=== PATIENT | male | born 1960 | race Caucasian/White ===

== ENCOUNTER 2018-12-06 12:33 | Inpatient (IN) | payer OTHER ==
[2018-12-06] MEDS ORDERED: BUPIVACAINE 0.25% PF 10 ML VIAL ONE (13:13)
[2018-12-06] MEDS ORDERED: LIDOCAINE 1% MPF 30 ML VIAL ONE (13:13)
[2018-12-06] MEDS ORDERED: FENTANYL CITR 100 MCG/2 ML ONE ×2 (13:29→14:28)
[2018-12-06] MEDS ORDERED: PROPOFOL 200 MG/20 ML VIAL IV ONE (13:29)
[2018-12-06] MEDS ORDERED: LIDOCAINE 2% MPF 5 ML VIAL ONE (13:32)
[2018-12-06] MEDS ORDERED: ROCURONIUM 50 MG/5 ML VIAL IV ONE (13:34)
[2018-12-06] MEDS ORDERED: MIDAZOLAM HCL 2 MG/2 ML INJ ONE (13:39)
[2018-12-06] MEDS ORDERED: Ringers Lactate 1,000 ML IV ONE (13:50)
[2018-12-06] MEDS ORDERED: CEFAZOLIN/SWI 1gm 1 GM/10 ML SYR ONE (13:51)
[2018-12-06] MEDS ORDERED: D5LR 1,000 ML IV SCH (14:00)
[2018-12-06] MEDS: VANCOMYCIN 1.75 GM in NA CHLORIDE 0.9% 500 ML IVPB SCH (14:11)
[2018-12-06] MEDS ORDERED: BACITRACIN 50000 UNIT VIAL ONE (14:15)
[2018-12-06] MEDS ORDERED: NS 0.9% VIAL 10 ML ONE (14:16)
[2018-12-06] MEDS ORDERED: MEPERIDINE HCL 50 MG/ML AMP ONE ×2 (15:20→15:48)
[2018-12-06 15:52] LABS: Absolute Lymphocytes (CBC) 1.6 K/uL (0.7-4.9); Basophils % 0.6 % (0-1.3); Eosinophils % 0.2 % (0-4.4); Hematocrit 48.4 % (39.6-49.0); Lymphocytes % 8.8 % (15.3-44.8); MPV 8.8 fL (7.6-11.3); Monocytes % 7.4 % (3.3-12.3); RBC Red Blood Cell Count 5.71 M/uL (4.33-5.43)
[2018-12-06 15:55] LABS: Protime INR 1.24
--- NOTE | 2018-12-06 16:00 | EKG ---
Test Date: 2018-12-06 Test Time: 13:17:49 Support Technician: DEMETRIA MEASUREMENT RESULTS: Intervals: Rate: 98 KS: 146 QRSD: 96 QT: 330 QTc: 421 [place]: P: 44 KS: 146 QRS: 36 T: 41 INTERPRETIVE STATEMENTS: Normal sinus rhythm Normal ECG Compared to ECG 09/04/1999 12:05:00 No significant changes Electronically Signed On 12-06-18 15:59:43 CDT by Brody Landa
[2018-12-06 16:13] LABS: Albumin 3.1 g/dL (3.4-5.0); Bilirubin Total 0.7 mg/dL (0.2-1.0); Potassium 3.9 mmol/L (3.5-5.1); Protein, Total 6.8 g/dL (6.4-8.2)
[2018-12-06] MEDS: INSULIN -REGULAR HUMAN 50 UNIT/0.5 ML ML SQ SCH ×2 (16:30→21:00)
[2018-12-06] MEDS: NA CHLORIDE 0.9% 1,000 ML IV SCH (17:26)
[2018-12-06] MEDS ORDERED: CEFEPIME 2 GM VIAL IV SCH (21:00)
[2018-12-06] MEDS: CEFEPIME/SWI 2gm 2 GM/20 ML SYR IV SCH (21:13)
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
[2018-12-07] MEDS: MORPHINE 4 MG/ML SYR IV PRN ×2 (00:26→09:15)
[2018-12-07] MEDS: VANCOMYCIN 1.75 GM in NA CHLORIDE 0.9% 500 ML IVPB SCH ×2 (02:24→14:49)
[2018-12-07] MEDS: NA CHLORIDE 0.9% 1,000 ML IV SCH ×3 (02:26→12:20)
[2018-12-07 05:54] LABS: Absolute Lymphocytes (CBC) 1.7 K/uL (0.7-4.9); Basophils % 0.2 % (0-1.3); Eosinophils % 0.6 % (0-4.4); Hematocrit 44.7 % (39.6-49.0); Lymphocytes % 13.3 % (15.3-44.8); MPV 8.3 fL (7.6-11.3); Monocytes % 7.9 % (3.3-12.3); RBC Red Blood Cell Count 5.32 M/uL (4.33-5.43)
[2018-12-07] MEDS ORDERED: ACETAMINOPHEN 500 MG TAB PO PRN (05:54)
[2018-12-07 06:09] LABS: Albumin 2.6 g/dL (3.4-5.0); Bilirubin Total 0.5 mg/dL (0.2-1.0); Magnesium 2.2 mg/dL (1.8-2.4); Protein, Total 6.3 g/dL (6.4-8.2)
[2018-12-07] MEDS: INSULIN -REGULAR HUMAN 50 UNIT/0.5 ML ML SQ SCH ×4 (07:30→21:00)
[2018-12-07] MEDS: CEFEPIME/SWI 2gm 2 GM/20 ML SYR IV SCH ×2 (07:52→21:44)
[2018-12-07] MEDS: ONDANSETRON 4 MG/2 ML VIAL IV PRN (09:22)
[2018-12-07] MEDS: RANITIDINE 150 MG TABLET PO SCH ×2 (10:29→21:44)
[2018-12-07] MEDS: ACETAMINOPHEN 500 MG TAB PO PRN (12:19)
[2018-12-07] MEDS ORDERED: SODIUM CHLORIDE 0.9% 10ML INJ IV PRN (12:54)
[2018-12-07] MEDS ORDERED: PANTOPRAZOLE 40 MG INJ IVP ONE (12:56)
--- NOTE | 2018-12-07 13:16 | PN ---
Date of Progress Note: 12/07/2018 Subjective: The patient seen and examined. Chart reviewed and case discussed with RN. The patient states his pain is better. Medications: List reviewed. Physical Examination: Vital Signs: Temperature 97.6, heart rate 66, blood pressure 140/88, respirations 17, and O2 of 96% on 2 L via nasal cannula. General: Awake, alert, oriented x3. Some mild distress due to nausea. Obese male. CV: S1 and S2. Regular rate and rhythm. Peripheral pulses present. Respiratory: Moving air well bilaterally. No wheezing. Gastrointestinal: Abdomen is soft, nontender, nondistended. Positive bowel sounds. Extremities: No clubbing, cyanosis, or edema. Neurologic: Nonfocal. : Right scrotum incision site clean, dry, intact. Packing in place with some drainage. Laboratory Data: Sodium 143, potassium 4, chloride 108, CO2 30, BUN 16, creatinine 0.93, glucose 97, calcium 7.8, magnesium 2.2, albumin 2.6. WBC 13, H and H 14.6 and 44.7, platelets 237, neutrophils 78%. Cultures pending. Wound cultures growing out 3+ beta-hemolytic Strep group B. Assessment And Plan: A 58-year-old male with: 1. Right scrotal abscess and cellulitis with necrosis, status post incision and drainage. Pain is improving. Continue IV antibiotics. Wound cultures growing group B Strep, may be contaminant. Blood cultures are pending. Appreciate Dr. Arvizu's input. WBC count is trending down. The patient is afebrile. 2. Moderate protein-calorie malnutrition. We continue with supplements. 3. Low testosterone. The patient is on supplements. 4. Obesity, BMI 36. 5. Deep venous thrombosis prophylaxis. We will start Lovenox. Plan: Continue with IV antibiotics. Follow up on cultures. Likely discharge in the next 24-48 hours depending on clinical response. We will need to have wound care set up. ADDENDUM: Patient reports GERD symptoms. Takes Zantac at home. Did not help. Will give IV protonix x1. Pt has never had EGD done previously. Recommend outpt GI f/up. SA/MODL Voice ID: [id number] Report ID: [id number] [facility]
--- NOTE | 2018-12-07 18:47 | PN ---
Subjective: The patient is doing well. Feels better. Objective: Vital Signs: 97.6, 66, 17, 140/88, 96% sat on nasal cannula 1 L/minute. Laboratory Data: The patient's white count has decreased from 18,300 to 13,000. Coags are negative. Chemistry shows glucose better at 127, was 142 on admission. Hemoglobin A1c pending. Assessment: Status post scrotal incision and drainage, resection of necrotic skin, and semi-closure with [place] drain placement. Examined the wound today. It is beefy red granulation wound. If the wound looks pretty good tomorrow, may consider closing it primary and leaving the draining until next week. We will await for the final culture results to come back and continue to monitor patient. We will make him n.p.o. post midnight. Hold Lovenox dose tomorrow morning. CHAPITO/ODIN Voice ID: [id number] Report ID: [id number]
[2018-12-08] MEDS: D5LR 1,000 ML IV SCH ×2 (01:05→15:11)
[2018-12-08] MEDS: NA CHLORIDE 0.9% 1,000 ML IV SCH (01:13)
[2018-12-08] MEDS: VANCOMYCIN 1.75 GM in NA CHLORIDE 0.9% 500 ML IVPB SCH ×2 (02:19→13:33)
[2018-12-08 05:36] LABS: Absolute Lymphocytes (CBC) 1.7 K/uL (0.7-4.9); Basophils % 0.4 % (0-1.3); Eosinophils % 1.8 % (0-4.4); Hematocrit 46.7 % (39.6-49.0); Lymphocytes % 17.4 % (15.3-44.8); MPV 8.4 fL (7.6-11.3); Monocytes % 8.6 % (3.3-12.3); RBC Red Blood Cell Count 5.51 M/uL (4.33-5.43)
[2018-12-08 05:53] LABS: Albumin 2.6 g/dL (3.4-5.0); Bilirubin Total 0.4 mg/dL (0.2-1.0); Potassium 4.1 mmol/L (3.5-5.1); Protein, Total 6.3 g/dL (6.4-8.2)
[2018-12-08] MEDS: INSULIN -REGULAR HUMAN 50 UNIT/0.5 ML ML SQ SCH ×3 (07:30→15:44)
[2018-12-08] MEDS: RANITIDINE 150 MG TABLET PO SCH (09:00)
[2018-12-08] MEDS: CEFEPIME/SWI 2gm 2 GM/20 ML SYR IV SCH (09:11)
[2018-12-08] MEDS ORDERED: HYDROCODONE/APAP 7.5/325 MG TAB PO PRN (09:37)
[2018-12-08] MEDS: MORPHINE 4 MG/ML SYR IV PRN (10:33)
[2018-12-08] MEDS: ONDANSETRON 4 MG/2 ML VIAL IV PRN (10:33)
[2018-12-08] MEDS ORDERED: LIDOCAINE 1% MPF 30 ML VIAL ONE (11:17)
[2018-12-08] MEDS ORDERED: BUPIVACAINE 0.5% PF 10 ML VIAL ONE (11:17)
[2018-12-08] MEDS ORDERED: PROPOFOL 200 MG/20 ML VIAL IV ONE (11:21)
[2018-12-08] MEDS ORDERED: FENTANYL CITR 100 MCG/2 ML ONE (11:21)
[2018-12-08] MEDS ORDERED: MIDAZOLAM HCL 2 MG/2 ML INJ ONE (11:21)
[2018-12-08] MEDS ORDERED: BACITRACIN 50000 UNIT VIAL ONE (11:21)
[2018-12-08] MEDS ORDERED: LIDOCAINE 2% MPF 5 ML VIAL ONE (11:21)
[2018-12-08] MEDS ORDERED: KETOROLAC 30 MG/ML INJ ONE ×3 (12:12→12:38)
[2018-12-08] MEDS: HYDROMORPHONE HCL 1 MG/ML INJ ONE ×6 (12:26→12:57)
[2018-12-08] MEDS: ACETAMINOPHEN 500 MG TAB PO PRN (15:18)
--- NOTE | 2018-12-09 04:24 | DS ---
Date of Discharge: 12/08/2018 Consultants: Dr. Arvizu with Urology. Procedures: On 12/07/2018, incision and drainage of right scrotum abscess, debridement of necrotic s crotal tissue. Procedures on 12/08/2018, scrotal closure. Admitting Diagnoses: 1.Scrotal abscess and necrosis with cellulitis on the right side. 2.Leukocytosis with neutrophilia. 3.Obesity, BMI 36. 4.Low testosterone levels, on supplemental testosterone. Discharge Diagnoses: 1.Right scrotal cellulitis, necrosis, and abscess, status post I and D and drainage placement. 2.Streptococcus infection of the scrotum. 3.Low testosterone levels, on supplements. 4.Obesity, BMI 36. 5.New-onset diabetes mellitus, type 2 with hyperglycemia, [id number]. Hospital Course: The patient is a 58-year-old male, who was admitted directly to the hospital by Dr. Arvizu for scrotal swelling, necrosis, and cellulitis on the right side. The patient went for debrid ement and tolerated the procedure well. He was started on broad-spectrum IV antibiotics. Initially, the patient had an elevated white blood cell count of 18,000 with elevated neutrophils. The patient responded well to IV antibiotics. His white blood cell count normalized. His cultures grew out Str eptococcus agalactiae, which were sensitive to penicillin. The patient's blood cultures remained neg ative to date. The patient was then taken back for closure of the scrotum and [place] drain was to r emain in place until a week after when the patient will follow up with Dr. Arvizu for removal. The pa tient's pain improved. He was no longer in distress. He was afebrile. There were no signs of sepsi s. The patient was then cleared for discharge after scrotal closure. He will be sent home in a stab condition. Activity: As tolerated. Medications: As per medication reconciliation list. Followup: Follow up with PCP in 2-3 days. Follow up with urologist, Dr. Arvizu, in 1 week for remova l of [place] drain. Return to ER for worsening condition. Activity: No driving or operating heavy machinery while on narcotics. Medications: As per medication reconciliation list. Physical Examination: General: Awake, alert, oriented, no acute distress. Obese male. CV: S1, S2. No murmurs. Respiratory: Moving air well bilaterally. Abdomen: Soft, nontender, nondistended. Positive bowel sounds. Extremities: No clubbing, cyanosis, edema. Neuro: Nonfocal. Skin: Right scrotum [place] drain in place. Incision site clean, dry, intact. Total time spent discharging the patient was 38 minutes. The patient was counseled regarding his new -onset diabetes. He needs to have diabetic education set up as well as diet and exercise changes. I f he is unable to improve his hemoglobin A1c, he will need to be started on metformin. SA/MODL Voice ID: [id number] Report ID: [id number]
== END 2018-12-08 20:25 | disposition home health service (06) | DRG 728 ==
LOC: 2ND 12:33 → 4TH 12-07 17:26
PROVIDERS: ADMIT Family Medicine; ATTEND Family Medicine
PROC: 0HD9XZZ Extraction of Perineum Skin, External Approach (ICD-10-PCS; 2018-12-06)
PROC: 0V9500Z Drainage of Scrotum with Drainage Device, Open Approach (ICD-10-PCS; principal; 2018-12-06 13:00)
PROC: 0HQ9XZZ Repair Perineum Skin, External Approach (ICD-10-PCS; 2018-12-08)
DX: N49.2 Inflammatory disorders of scrotum (principal); E44.0 Moderate protein-calorie malnutrition; E66.9 Obesity, unspecified; K21.9 Gastro-esophageal reflux disease without esophagitis; B95.4 Other streptococcus as the cause of diseases classified elsewhere; E11.65 Type 2 diabetes mellitus with hyperglycemia; E29.1 Testicular hypofunction; Z68.36 Body mass index [BMI] 36.0-36.9, adult
CPT/HCPCS: 36415; 80053; 80202; 82962; 83036; 83735; 85025; 85610; 87040; 87070; 87075; 87077; 87176; 87186; 87205; 88304; 93005; 94760; 99251; C9113; J0690; J0692; J1170; J2175; J2250; J2405; J2704; J3010; J7030